=== PATIENT | male | born 1960 | race Caucasian/White ===

== ENCOUNTER 2021-03-18 18:11 | Emergency (ER) | payer OTHER ==
[~2021-03-18] VITALS: Ht 185.4 cm; Wt 100.0 kg
[2021-03-18 18:32] VITALS: TEMP 98.1
[2021-03-18 19:01] LABS: BASO # 0.1 K/mm3 (0.0-0.2); BASO % 0.8 % (0.0-2.0); EOS # 0.2 K/mm3 (0.0-0.7); GRAN # 5.4 K/mm3 (1.4-6.5); GRAN % 70.8 % (42.2-75.2); HEMATOCRIT 42.4 % (42.0-52.0); HEMOGLOBIN 14.8 g/dl (13.5-18.0); LYMPH # 1.5 K/mm3 (1.2-3.4); LYMPH % 20.1 % (20.0-51.0); MEAN CELL VOLUME 92 fl (80.0-100.0); MEAN CORPUSCULAR HEMOGLOBIN 32 pg (27-31); MEAN CORPUSCULAR HGB CONC 35 g/dl (33.0-37.0); MEAN PLATELET VOLUME 10.1 fl (7.4-10.4); MONO # 0.5 K/mm3 (0.1-0.6); MONO % 6.2 % (1.7-9.3); PLATELET COUNT 269 K/mm3 (130-400); RED BLOOD COUNT 4.62 M/mm3 (4.20-5.60); REDCELL DISTRIBUTION WIDTH-CV 12.8 % (11.5-14.5)
[2021-03-18] MEDS ORDERED: ELIQUIS 2.5 PO (19:06)
[2021-03-18] MEDS ORDERED: COZAAR 25MG25 MG/TAB PO (19:07)
[2021-03-18] MEDS ORDERED: MICROZIDE12.5 MG PO (19:07)
[2021-03-18] MEDS ORDERED: BETAPACE 80MG80 MG PO (19:07)
[2021-03-18 19:45] VITALS: BP 124/80; PULSE 58
== END 2021-03-18 19:45 | disposition home or self-care (01) ==
LOC: COL.ER 18:11
PROVIDERS: Nurse Practitioner
DX: S70.02XA Contusion of left hip, initial encounter (principal); I10 Essential (primary) hypertension; I48.91 Unspecified atrial fibrillation; Z79.01 Long term (current) use of anticoagulants; Z79.899 Other long term (current) drug therapy; W01.0XXA Fall on same level from slipping, tripping and stumbling without subsequent striking against object, initial encounter